=== PATIENT | male | born 1985 | race Caucasian/White ===

== ENCOUNTER 2020-12-11 15:04 | Emergency (ER) | payer OTHER ==
[2020-12-11 15:18] VITALS: BP 131/65; PULSE 121; O2SAT 98
[2020-12-11] MEDS ORDERED: Sodium Chloride 0.9% 1000 ML 1,000 ML IV STA (15:28)
[2020-12-11] MEDS ORDERED: Sodium Chloride 0.9% 1000 ML 1,000 ML ONE (15:34)
[2020-12-11 15:59] LABS: Absolute Neutrophil Ct (ANC) 5.38 (1.4-6.9); BASOPHIL % 0.2 % (0.0-0.4); Basophil (Absolute #) 0.02 (0-0.4); Eosinophil % 0.8 % (0.00-5.0); Eosinophil (Absolute #) 0.07 (0-0.5); Hematocrit 39.6 % (42-50); Hemoglobin 12.3 gm/dl (12.5-18.0); Lymphocyte (Absolute #) 2.12 (1.0-4.6); Lymphocytes % 25.5 % (24.0-44.0); Mean Cell Volume 91.5 fl (78-100); Mean Corpuscular Hemoglobin 28.4 pg (26-32); Mean Corpuscular Hgb Concent. 31.1 g/dl (32-36); Mean Platelet Volume 8.8 fl (7.5-11.0); Monocyte (Absolute #) 0.74 (0.0-1.3); Monocytes % 8.9 % (0.0-12.0); Neutrophil % 64.6 % (36.0-66.0); Platelet Count 360 K/mm3 (150-450); Red Blood Count 4.33 M/mm3 (4.1-5.6); Red Cell Distribution Width 13.5 % (11.5-14.0); White Blood Count 8.3 K/mm3 (4.0-10.5)
[2020-12-11 16:18] LABS: ALBUMIN 4.5 g/dL (3.5-5.0); ALKALINE PHOSPHATASE 62 U/L (38-126); ANION GAP 14.7 MEQ/L (5-15); BLOOD UREA NITROGEN 10 mg/dL (9-20); CHLORIDE 103 mmol/L (98-107); Calcium 9.3 mg/dL (8.4-10.2); Carbon Dioxide 26 mmol/L (22-30); Creatinine 1 1.14 mg/dL (0.66-1.25); EST GLOMERULAR FILTRATION RATE > 60.0 ML/MIN; Glucose 122 mg/dL (74-106); LIPASE 73 U/L (23-300); Potassium 3.7 mmol/L (3.5-5.1); SGOT/AST 25 U/L (17-59); SGPT/ALT 20 U/L (0-50); SODIUM 139 mmol/L (137-145); Total Protein 7.8 g/dL (6.3-8.2)
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
[2020-12-11 17:46] LABS: Appearance CLEAR (CLEAR); Bilirubin NEGATIVE (NEGATIVE); Blood NEGATIVE Ery/ul (0-5); Glucose NEGATIVE (NEGATIVE); Ketones NEGATIVE (NEGATIVE); Leukocyte Esterase NEGATIVE (NEGATIVE); Mucus SLIGHT /HPF (NEGATIVE); Nitrite NEGATIVE (NEGATIVE); Protein,Urine Dip NEGATIVE (Negative); Urobilinogen NEGATIVE mg/dL (0-1)
[2020-12-11 17:56] LABS: Bacteria NONE SEEN /HPF (NEGATIVE)
== END 2020-12-11 16:58 | disposition home or self-care (01) ==
LOC: ED 15:04
DX: S30.1XXA Contusion of abdominal wall, initial encounter (principal); V89.2XXA Person injured in unspecified motor-vehicle accident, traffic, initial encounter; I10 Essential (primary) hypertension
CPT/HCPCS: 36000; 36415; 71260; 74177; 80053; 81001; 83690; 84484; 85025; 96360; 99285

== ENCOUNTER 2022-03-13 22:34 | Emergency (ER) | payer OTHER ==
[2022-03-13] MEDS ORDERED: BABY ASPIRIN 81 MG CHEW PO ONE (22:53)
[2022-03-13 23:06] LABS: Absolute Neutrophil Ct (ANC) 5.54 x10^3/uL (1.4-6.9); Basophil (Absolute #) 0.03 x10^3/uL (0-0.4); Eosinophil % 0.4 % (0.00-5.0); Eosinophil (Absolute #) 0.04 x10^3/uL (0-0.5); Hematocrit 38.4 % (42-50); Hemoglobin 12.1 g/dL (12.5-18.0); Lymphocyte (Absolute #) 2.79 x10^3/uL (1.0-4.6); Lymphocytes % 29.8 % (24.0-44.0); Mean Cell Volume 90.1 fL (78-100); Mean Corpuscular Hemoglobin 28.4 pg (26-32); Mean Corpuscular Hgb Concent. 31.5 g/dL (32-36); Monocyte (Absolute #) 0.94 x10^3/uL (0.0-1.3); Neutrophil % 59.2 % (36.0-66.0); Platelet Count 361 x10^3/uL (150-450); Red Blood Count 4.26 x10^6/uL (4.1-5.6); Red Cell Distribution Width 13.8 % (11.5-14.0); White Blood Count 9.4 x10^3/uL (4.0-10.5)
[2022-03-13 23:29] LABS: ALBUMIN 4.4 g/dL (3.5-5.0); ALKALINE PHOSPHATASE 73 U/L (38-126); ANION GAP 13.1 MEQ/L (5-15); BLOOD UREA NITROGEN 10 mg/dL (9-20); CHLORIDE 105 mmol/L (98-107); Calcium 8.9 mg/dL (8.4-10.2); Carbon Dioxide 25 mmol/L (22-30); Creatinine 1 1.12 mg/dL (0.66-1.25); EST GLOMERULAR FILTRATION RATE > 60.0 ML/MIN; Glucose 93 mg/dL (74-106); NT PRO BNP 86.3 pg/mL (0-450); Potassium 3.9 mmol/L (3.5-5.1); SGOT/AST 23 U/L (17-59); SGPT/ALT 22 U/L (0-50); SODIUM 138 mmol/L (137-145); Total Protein 7.7 g/dL (6.3-8.2)
[2022-03-13] MEDS ORDERED: GI COCKTAIL 45 ML (Maalox/Lidocaine) PO ONE (23:49)
[2022-03-13] MEDS ORDERED: MAALOX ES 30 ML UNIT DOSE ONE (23:50)
[2022-03-13] MEDS ORDERED: XYLOCAINE VISCOUS 2% 15 ML CUP ONE (23:50)
[2022-03-13] MEDS ORDERED: Pepcid 20 MG VIAL IV ONE (23:50)
--- NOTE | 2022-03-13 23:54 | ERPHSYRPT ---
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 Pt is alert and oriented x 3. States pain is a constant ache in the chest. Pt has hx of HTN. Pt denies any dizziness, nausea, vomiting, or shortness of breath. Pt does state he had a headache that just started. Pt skin is pink, warm, and dry. Respirations are easy and unlabored at this time. No edema noted. Lungs clear. Radial pulses strong. Rates pain 4 on 10 scale. Physician History: 36 years old male with history of hypertension presented to the ER with left- sided chest pain which she described as a pressure tightness/aching sensation which started almost 2 hours ago while he was driving back home from work. Constant without any significant aggravating or relieving factors. Also reports having discomfort with taking a deep breath but no difficulty breathing otherwise. No wheezing, cough or sick contact reported. No previous history of coronary artery disease/chest pains. Timing/Duration: hour(s) (2), constant, sudden Activities at Onset: other (While driving) Quality: aching, fullness, pressure Location: other (Left side) Chest Pain Radiation: no radiation Severity of Pain-Max: mild Severity of Pain-Current: mild Modifying Factors: Improves With: nothing Associated Symptoms: denies symptoms, No shortness of breath Prior Chest Pain/Cardiac Workup: no prior chest pain Nitro Today/Relief: no nitro taken today Aspirin Treatment Today: no aspirin today Allergies/Adverse Reactions: No Known Drug Allergies Allergy (Verified 03/13/22 22:42) Home Medications: Amlodipine Besylate/Benazepril [Amlodipine-Benazepril 10-20 mg] 20 mg PO DAILY 12/11/20 [History] Hx Tetanus, Diphtheria Vaccination/Date Given: Yes Hx Influenza Vaccination/Date Given: Yes Hx Pneumococcal Vaccination/Date Given: No Immunizations Up to Date: Yes Travel Risk - International Travel Have you traveled outside of the country in past 3 weeks: No - Coronavirus Screening Are you exhibiting any of the following symptoms?: No Close contact with a COVID-19 positive Pt in past 14-21 Days: No - Vaccine Status Have you recieved a Covid-19 vaccination: Yes 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 - Vaccination Dates Date of 2cond Vaccination (if applicable): unknown - Past Medical History Pertinent Past Medical History: Yes Neurological History: No Pertinent History ENT History: No Pertinent History Cardiac History: Hypertension Respiratory History: No Pertinent History Endocrine Medical History: No Pertinent History Musculoskeletal History: No Pertinent History GI Medical History: No Pertinent History History: No Pertinent History Psycho-Social History: No Pertinent History Male Reproductive Disorders: No Pertinent History - Past Surgical History Past Surgical History: No - Social History Smoking Status: Never smoker Exposure to second hand smoke: No Drug Use: none Patient Lives Alone: No - Nursing Vital Signs Nursing Vital Signs: Initial Vital Signs Temperature 97.8 F 03/13/22 22:34 Pulse Rate 90 03/13/22 22:34 Respiratory Rate 18 03/13/22 22:34 Blood Pressure 131/84 03/13/22 22:34 O2 Sat by Pulse Oximetry 99 03/13/22 22:34 Pain Scale Pain Intensity 2 - Physical Exam General Appearance: no apparent distress, alert Eye Exam: PERRL/EOMI, eyes nml inspection Ears, Nose, Throat Exam: normal ENT inspection, TMs normal, pharynx normal, moist mucous membranes Neck Exam: normal inspection, non-tender, supple, full range of motion Respiratory Exam: normal breath sounds, lungs clear Cardiovascular Exam: regular rate/rhythm, normal heart sounds Gastrointestinal/Abdomen Exam: soft, normal bowel sounds, No tenderness Back Exam: normal inspection, normal range of motion Extremity Exam: normal inspection, normal range of motion, pelvis stable Neurologic Exam: alert, oriented x 3, cooperative, 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 Skin Exam: normal color SpO2 Interpretation: normal SpO2: 99 O2 Delivery: Room Air - Course EKG Interpreted by Me: RATE (85), Sinus Rhythm, NORMAL AXIS, NORMAL INTERVALS, NORMAL QRS Ordered Tests: Active Orders 24 hr Category Date Time Status Revolving Field Assembler STAT Care 03/13/22 22:54 Active EKG-ER Only STAT Care 03/13/22 22:53 Active IV Insertion STAT Care 03/13/22 22:53 Active CHEST 1 VIEW (PORTABLE) Stat Exams 03/13/22 23:09 Taken CBC W DIFF Stat Lab 03/13/22 22:53 Completed CMP Stat Lab 03/13/22 22:53 Completed D-DIMER QUANTITATIVE Stat Lab 03/13/22 22:53 Completed NT PRO BNP Stat Lab 03/13/22 22:53 Completed TROPONIN Q4H Lab 03/13/22 23:00 Completed TROPONIN Q4H Lab 03/14/22 01:00 Completed TROPONIN Q4H Lab 03/14/22 03:00 Ordered Medication Summary Generic Name Dose Route Start Last Admin Trade Name Millie PRN Reason Stop Dose Admin Famotidine 20 mg 03/14/22 23:49 03/13/22 23:51 Famotidine 20 Mg/1 Vial IV 03/14/22 23:50 20 mg STAT ONE Administration Discontinued Medications Generic Name Dose Route Start Last Admin Trade Name Millie PRN Reason Stop Dose Admin Al Hydrox/Mg Hydrox/Simethicone Confirm 03/13/22 23:50 Mag Hydrox/Al Hydrox/Simeth 30 Ml Udcup Administered 03/13/22 23:51 Dose 30 ml .ROUTE .STK-MED ONE Aspirin 324 mg 03/13/22 22:53 03/13/22 22:57 Aspirin 81 Mg Tab.Chew PO 03/13/22 22:54 324 mg STAT ONE Administration Famotidine Confirm 03/13/22 23:50 Famotidine 20 Mg/1 Vial Administered 03/13/22 23:51 Dose 20 mg IV .STK-MED ONE Lidocaine HCl Confirm 03/13/22 23:50 Lidocaine Hcl 2% Viscous 15 Ml Udcup Administered 03/13/22 23:51 Dose 15 ml .ROUTE .STK-MED ONE Magnesium Hydroxide 45 ml 03/13/22 23:49 03/13/22 23:51 Mag Hydrx/Alum Hyd/Simeth/Lido 45 Ml Bottle PO 03/13/22 23:50 45 ml STAT ONE Administration Lab/Rad Data: Laboratory Result Diagrams 03/13/22 22:53 03/13/22 22:53 Laboratory Results 03/14/22 03/13/22 03/13/22 Range/Units 01:00 23:00 22:53 WBC (4.0-10.5) x10^3/uL RBC (4.1-5.6) x10^6/uL Hgb (12.5-18.0) g/dL Hct (42-50) % MCV (78-100) fL MCH (26-32) pg MCHC (32-36) g/dL RDW (11.5-14.0) % Plt Count (150-450) x10^3/uL MPV (7.5-11.0) fL Gran % (36.0-66.0) % Immature Gran % (Auto) (0.00-0.4) % Nucleat RBC Rel Count (0.00-0.1) % Eos # (Auto) (0-0.5) x10^3/uL Immature Gran # (Auto) (0.00-0.03) x10^3u/L Absolute Lymphs (auto) (1.0-4.6) x10^3/uL Absolute Monos (auto) (0.0-1.3) x10^3/uL Absolute Nucleated RBC (0.00-0.01) x10^3u/L Lymphocytes % (24.0-44.0) % Monocytes % (0.0-12.0) % Eosinophils % (0.00-5.0) % Basophils % (0.0-0.4) % Absolute Granulocytes (1.4-6.9) x10^3/uL Basophils # (0-0.4) x10^3/uL D-Dimer < 0.19 (0.0-0.50) mg/L Sodium (137-145) mmol/L Potassium (3.5-5.1) mmol/L Chloride (98-107) mmol/L Carbon Dioxide (22-30) mmol/L Anion Gap (5-15) MEQ/L BUN (9-20) mg/dL Creatinine (0.66-1.25) mg/dL Estimated GFR ML/MIN Glucose (74-106) mg/dL Calcium (8.4-10.2) mg/dL Total Bilirubin (0.2-1.3) mg/dL AST (17-59) U/L ALT (0-50) U/L Alkaline Phosphatase (38-126) U/L Troponin I < 0.012 < 0.012 (0.000-0.034) ng/mL NT-Pro-B Natriuret Pep (0-450) pg/mL Serum Total Protein (6.3-8.2) g/dL Albumin (3.5-5.0) g/dL 08/18/22 08/18/22 Range/Units 22:53 22:53 WBC 9.4 (4.0-10.5) x10^3/uL RBC 4.26 (4.1-5.6) x10^6/uL Hgb 12.1 L (12.5-18.0) g/dL Hct 38.4 L (42-50) % MCV 90.1 (78-100) fL MCH 28.4 (26-32) pg MCHC 31.5 L (32-36) g/dL RDW 13.8 (11.5-14.0) % Plt Count 361 (150-450) x10^3/uL MPV 9.0 (7.5-11.0) fL Gran % 59.2 (36.0-66.0) % Immature Gran % (Auto) 0.3 (0.00-0.4) % Nucleat RBC Rel Count 0.0 (0.00-0.1) % Eos # (Auto) 0.04 (0-0.5) x10^3/uL Immature Gran # (Auto) 0.03 (0.00-0.03) x10^3u/L Absolute Lymphs (auto) 2.79 (1.0-4.6) x10^3/uL Absolute Monos (auto) 0.94 (0.0-1.3) x10^3/uL Absolute Nucleated RBC 0.00 (0.00-0.01) x10^3u/L Lymphocytes % 29.8 (24.0-44.0) % Monocytes % 10.0 (0.0-12.0) % Eosinophils % 0.4 (0.00-5.0) % Basophils % 0.3 (0.0-0.4) % Absolute Granulocytes 5.54 (1.4-6.9) x10^3/uL Basophils # 0.03 (0-0.4) x10^3/uL D-Dimer (0.0-0.50) mg/L Sodium 138 (137-145) mmol/L Potassium 3.9 (3.5-5.1) mmol/L Chloride 105 (98-107) mmol/L Carbon Dioxide 25 (22-30) mmol/L Anion Gap 13.1 (5-15) MEQ/L BUN 10 (9-20) mg/dL Creatinine 1.12 (0.66-1.25) mg/dL Estimated GFR > 60.0 ML/MIN Glucose 93 (74-106) mg/dL Calcium 8.9 (8.4-10.2) mg/dL Total Bilirubin 0.30 (0.2-1.3) mg/dL AST 23 (17-59) U/L ALT 22 (0-50) U/L Alkaline Phosphatase 73 (38-126) U/L Troponin I (0.000-0.034) ng/mL NT-Pro-B Natriuret Pep 86.3 (0-450) pg/mL Serum Total Protein 7.7 (6.3-8.2) g/dL Albumin 4.4 (3.5-5.0) g/dL - Progress Progress: re-examined Air Movement: good Progress Note: 36 years old is evaluated for left-sided chest pain. EKG showed normal sinus rhythm without any acute ischemic changes. Negative initial troponin and D- dimers. Chest x-ray negative for any acute cardiopulmonary findings reviewed by me. Patient is not tachypneic or tachycardic. He does not want any pain medication. He is given aspirin, on reevaluation feeling better but still have pain, will give GI cocktail and Pepcid. Will obtain second troponin and if negative patient will be discharged as he has a low heart score. Outpatient cardiology follow-up. 03/14/22 02:03 Patient pain is relieved with GI cocktail and Pepcid. I believe he has some element of GERD. Placed on Protonix. Outpatient follow-up. Blood Culture(s) Obtained: No Antibiotics given: No Counseled pt/family regarding: lab results, diagnosis, need for follow-up, rad results - Departure Departure Disposition: Home Clinical Impression: Atypical chest pain, GERD with esophagitis Condition: Stable Critical Care Time: No Referrals: TIM VARGAS MD [Primary Care Provider] - Follow up/PCP as directed (1-2 days for reevaluation) CLEVE ELISE [CONSULTING PHYSICIAN] - Follow up/PCP as directed (Call in the morning for appointment for reevaluation) Instructions: Angina (DC), Chest Pain (DC) Additional Instructions: Follow-up with primary care and cardiology for reevaluation. Return to ER for worsening chest pain or if having palpitation/difficulty breathing.
[2022-03-14 00:05] VITALS: BP 135/89; PULSE 83
[2022-03-14 03:04] VITALS: O2SAT 99
--- NOTE | 2022-03-14 08:42 | XRAY ---
Indication: Chest pain. Comparison: None Portable chest inflated and clear. Heart not enlarged. Bony thorax intact with mild degenerative changes.
[2022-03-14] MEDS ORDERED: Pepcid 20 MG VIAL IV ONE (23:49)
== END 2022-03-14 02:00 | disposition home or self-care (01) ==
LOC: ED 22:34
DX: K21.00 Gastro-esophageal reflux disease with esophagitis, without bleeding (principal); R07.89 Other chest pain; I10 Essential (primary) hypertension; Z79.899 Other long term (current) drug therapy
CPT/HCPCS: 36000; 36415; 71045; 80053; 83880; 84484; 85025; 85379; 93005; 93041; 96374; 99284; A9270-GY